=== PATIENT | male | born 1950 | race Hispanic/Latino ===

== ENCOUNTER 2016-07-15 09:18 | Day surgery (SDC) | payer OTHER ==
[~2016-07-15] VITALS: Ht 188 cm; Wt 129.3 kg
[~2016-07-15 09:18] MED LIST: 0.9% Sodium Chloride 1,000 ML IV SCH; AMLO5TAB2 PO; HYDR25TA4 PO; LISI-567 PO; MECL-114 PO; OMEG-38 PO; OMEP20TA86 PO; Sodium Chloride LOK Flush 10 mL Syringe IV PRN; WARF10TA4 PO; WARF5TAB7 PO; fentaNYL-PF 50 mCg/mL 2 mL Inj IVPUSH PRN
[2016-07-15 09:38] VITALS: BP 131/81; PULSE 65; RESP 14; O2SAT 97
--- NOTE | 2016-07-15 12:14 | PCM.ENDCOL ---
Colonoscopy Date of Service: Jul 15, 2016 Physician Maurilio Buckner MD Pre Procedure Diagnosis: History of polyps Post Procedure Dx & Findings: Polyp hemorrhoids and prominent ileocecal valve Procedure Colonoscopy PROCEDURE IN DETAIL: Prep adequate Withdrawal time 10 minutes After unremarkable rectal examination the Olympus video colonoscope was inserted patient's anal canal and was advanced to cecum. Landmarks were identified including the ileocecal valve and appendiceal orifice. Scope was withdrawn systematically. Visualized colonic mucosa showed healthy shiny mucosa with normal healthy-appearing vasculature. Ileocecal valve appear prominent. This was biopsied. In the rectum 1 mm polyp noted which was biopsied and removed completely. In the rectum retroflexion was done which showed hemorrhoids. Anal canal was inspected carefully on the way out and hemorrhoids noted. Impression Polyp 1 status post complete removal Prominent ileocecal valve status post biopsy Hemorrhoids Personal history of colon polyp Recommendation Repeat colonoscopy 5 years Presedation Assessment Risks and Benefits Informed consent was obtained from the patient after all risks and benefits including but not limited to drug reaction, infection, pain, bleeding, perforation, as well as alternatives were discussed. Patient monitoring Continuous pulse oximetry, cardiac monitoring, blood pressure monitoring, IV access, and oxygen at 2L per nasal cannula. Periprocedural Fentanyl: Fentanyl 75mcg Incrementally Midazolam: Midazolam 3mg Incrementally Complications There were no periprocedural complications identified. Post Procedure Plan Post Procedure Recommendations 1. Restrict activities today. 2. Resume normal activities in the morning. 3. Resume medications. 4. Patient informed of normal post procedure side effects as bloating, drowsiness, blood streaking in the stool. 5. average risk CRCS. If colon polyps come back as: -Hyperplastic- can repeat colonoscopy in 10 years -Tubular adenoma- repeat colonoscopy in 5 years -Tubulovillous/villous adenoma- repeat colonoscopy in 3 years -If any dysplasia- return to clinic as soon as possible 6. Please don't hesitate to call me with any questions. Maurilio Buckner MD Jul 15, 2016 12:14
[2016-07-15 12:16] VITALS: BP 159/91; PULSE 66; RESP 14; O2SAT 94
[2016-07-15 12:25] VITALS: BP 112/73; PULSE 66; RESP 14; O2SAT 95
[2016-07-15 12:36] VITALS: BP 118/73; PULSE 65; RESP 14; O2SAT 93
--- NOTE | 2016-07-16 11:00 | PATH ---
SURGICAL PATHOLOGY Attending Physician:Maurilio Buckner M.D. CASE STATUS: Signed Out PATIENT NAME: JUWAN CALDERON PID: [id number] : 1950 DATE COLLECTED:07/15/2016 20:11 SPECIMEN: 1: Ileum, Biopsy 2: Rectum, Biopsy CLINICAL HISTORY: 1). PROMINENT ILEOCECAL VALVE BIOPSY 2). RECTAL POLYP X1 FINAL DIAGNOSIS: 1.PROMINENT ILEOCECAL VALVE BIOPSY: FRAGMENT OF COLON MUCOSA WITH FOCAL PROMINENT LYMPHOID AGGREGATE. NO SMALL BOWEL MUCOSA IDENTIFIED. Negative for dysplasia and malignancy. 2.RECTAL POLYP: POLYPOID-SHAPED FRAGMENT OF COLON MUCOSA ASSOCIATED WITH PROMINENT MUCOSAL LYMPHOID HYPERPLASIA. Negative for dysplasia and malignancy. ICD10 code K63.5 GROSS DESCRIPTION: The specimen is received in two formalin filled containers labeled with the patient's name. 1). The specimen is sublabeled "prominent ICV" and consists of a 0.3-0.2 x 0.2 CM portion of tissue which is entirely submitted in cassette 1A. 2). The specimen is sublabeled "rectal polyp x1" and consists of a 0.2 x 0.2 x 0.2 CM portion of tissue which is entirely submitted in cassette 2A. 07/15/2016 DAC MICRO DESCRIPTION: See diagnosis. ICD-9 CODES: CPT CODES: 1: 15098 2: 50800 Electronically Signed Out Didier Jacob MD [facility] [address], [place] [address] Technical component performed at [facility], [facility] [address], [place], [address]
== END 2016-07-15 23:59 | disposition home or self-care (01) ==
LOC: END 09:18
PROVIDERS: ATTEND Internal Medicine
DX: Z12.11 Encounter for screening for malignant neoplasm of colon (principal); Z86.010 Personal history of colon polyps; K63.5 Polyp of colon; K64.9 Unspecified hemorrhoids; I10 Essential (primary) hypertension; I48.91 Unspecified atrial fibrillation; E78.5 Hyperlipidemia, unspecified; E11.9 Type 2 diabetes mellitus without complications; Z79.01 Long term (current) use of anticoagulants
CPT/HCPCS: 45380; G0500; J2250; J3010; J7030